=== PATIENT | male | born 1980 | race Caucasian/White ===

== ENCOUNTER 2018-11-14 23:49 | Emergency (ER) | payer OTHER | END 2018-11-15 01:47 | disposition home or self-care (01) | LOC: FTE 23:49 | DX: L02.414 Cutaneous abscess of left upper limb (principal); B35.3 Tinea pedis; H11.002 Unspecified pterygium of left eye; L02.413 Cutaneous abscess of right upper limb; Z87.891 Personal history of nicotine dependence | CPT/HCPCS: 99283 ==